=== PATIENT | female | born 1985 | race Caucasian/White ===

== ENCOUNTER 2022-03-16 11:01 | Emergency (ER) | payer BC ==
[2022-03-16] MEDS ORDERED: NA CHLORIDE 0.9% 1,000 ML ONE (11:12)
[2022-03-16 11:31] LABS: Absolute Lymphocytes (CBC) 1.7 K/uL (0.7-4.9); Hematocrit 30.3 % (36.0-45.0); Lymphocytes % 25.1 % (15.3-44.8); MCV 89.1 fL (80-100); MPV 7.6 fL (7.6-11.3)
--- NOTE | 2022-03-16 12:05 | RAD REPORT ---
EXAM DESCRIPTION: RAD - Chest Single View - 03/16/2022 11:56 am CLINICAL HISTORY: COUGH Chest pain. COMPARISON: No comparisons FINDINGS: Portable technique limits examination quality. The lungs are grossly clear. The heart is normal in size. No displaced fractures. IMPRESSION: No acute intrathoracic process suspected.
[2022-03-16 12:06] LABS: Bilirubin Total 0.3 mg/dL (0.2-1.0); Protein, Total 6.2 g/dL (6.4-8.2)
[2022-03-16 12:07] LABS: Potassium 3.3 mmol/L (3.5-5.1)
[2022-03-16 12:38] LABS: Urine Blood Trace-intact (Negative); Urine Glucose Negative (Negative); Urine Protein Negative (Negative)
[2022-03-16] MEDS ORDERED: POTASSIUM 25 MEQ EFFERV TAB ONE (12:40)
[2022-03-16] MEDS ORDERED: MECLIZINE HCL 12.5 MG TAB ONE (12:40)
--- NOTE | 2022-03-16 12:42 | EDPHYS ---
Physician Documentation [facility] Name: Fela Nayak Age: 36 yrs Sex: Female : 1985 Arrival Date: 03/16/2022 Time: 11:07 Bed 15 Private MD: ED Physician Donte Hancock HPI: 03/16 12:29 This 36 yrs old Female presents to ER via EMS with complaints of dizzy and luis angel lightheaded. 12:29 The patient presents with dizziness, generalized weakness. Onset: The symptoms/episode luis angel began/occurred just prior to arrival. Context: occurred at work. Modifying factors: The symptoms are alleviated by nothing, the symptoms are aggravated by nothing. Associated signs and symptoms: The patient has no apparent associated signs or symptoms. Severity of symptoms: At their worst the symptoms were mild in the emergency department the symptoms are unchanged. Patient's baseline: Neuro: alert and fully oriented. The patient has not experienced similar symptoms in the past. Historical: - Allergies: 11:32 No Known Allergies; kc6 - Home Meds: 11:32 None [Active]; kc6 - PMHx: 11:32 None; kc6 - PSHx: 11:32 section; kc6 - Immunization history:: Client reports having NOT received the Covid vaccine. Flu vaccine is up to date. - Social history:: Smoking status: Patient denies any tobacco usage or history of. - Family history:: not pertinent. ROS: 12:29 Constitutional: Negative for fever, chills, and weight loss, Eyes: Negative for injury, luis angel pain, redness, and discharge, ENT: Negative for injury, pain, and discharge, Neck: Negative for injury, pain, and swelling, Cardiovascular: Negative for chest pain, palpitations, and edema, Respiratory: Negative for shortness of breath, cough, wheezing, and pleuritic chest pain, Abdomen/GI: Negative for abdominal pain, nausea, vomiting, diarrhea, and constipation, Back: Negative for injury and pain, : Negative for injury, bleeding, discharge, and swelling, MS/Extremity: Negative for injury and deformity, Skin: Negative for injury, rash, and discoloration, Psych: Negative for depression, anxiety, suicide ideation, homicidal ideation, and hallucinations, Allergy/Immunology: Negative for hives, rash, and allergies, Endocrine: Negative for neck swelling, polydipsia, polyuria, polyphagia, and marked weight changes, Hematologic/Lymphatic: Negative for swollen nodes, abnormal bleeding, and unusual bruising. 12:29 Neuro: Positive for dizziness, weakness. Exam: 12:29 Constitutional: This is a well developed, well nourished patient who is awake, alert, luis angel and in no acute distress. Head/Face: Normocephalic, atraumatic. Eyes: Pupils equal round and reactive to light, extra-ocular motions intact. Lids and lashes normal. Conjunctiva and sclera are non-icteric and not injected. Cornea within normal limits. Periorbital areas with no swelling, redness, or edema. ENT: Nares patent. No nasal discharge, no septal abnormalities noted. Tympanic membranes are normal and external auditory canals are clear. Oropharynx with no redness, swelling, or masses, exudates, or evidence of obstruction, uvula midline. Mucous membranes moist. Neck: Trachea midline, no thyromegaly or masses palpated, and no cervical lymphadenopathy. Supple, full range of motion without nuchal rigidity, or vertebral point tenderness. No Meningismus. Chest/axilla: Normal chest wall appearance and motion. Nontender with no deformity. No lesions are appreciated. Cardiovascular: Regular rate and rhythm with a normal S1 and S2. No gallops, murmurs, or rubs. Normal PMI, no JVD. No pulse deficits. Respiratory: Lungs have equal breath sounds bilaterally, clear to auscultation and percussion. No rales, rhonchi or wheezes noted. No increased work of breathing, no retractions or nasal flaring. Abdomen/GI: Soft, non-tender, with normal bowel sounds. No distension or tympany. No guarding or rebound. No evidence of tenderness throughout. Back: No spinal tenderness. No costovertebral tenderness. Full range of motion. Skin: Warm, dry with normal turgor. Normal color with no rashes, no lesions, and no evidence of cellulitis. MS/ Extremity: Pulses equal, no cyanosis. Neurovascular intact. Full, normal range of motion. Neuro: Awake and alert, GCS 15, oriented to person, place, time, and situation. Cranial nerves II-XII grossly intact. Motor strength 5/5 in all extremities. Sensory grossly intact. Cerebellar exam normal. Normal gait. Psych: Awake, alert, with orientation to person, place and time. Behavior, mood, and affect are within normal limits. 12:29 ECG was reviewed by the Attending Physician. 12:33 Musculoskeletal/extremity: DVT Exam: No signs of deep vein thrombosis. no pain, no luis angel swelling, no tenderness, negative Homans' sign noted on exam, no appreciated bluish discoloration, no erythema, no increased warmth. Vital Signs: 11:29 BP 130 / 90; Pulse 73; Resp 15; Temp 97.9(O); Pulse Ox 98% on R/A; Weight 70.31 kg (R); kc6 Height 5 ft. 8 in. (172.72 cm) (R); Pain 0/10; 12:31 BP 124 / 78; Pulse 68; Resp 18 S; Pulse Ox 99% on R/A; Pain 0/10; kc6 11:29 Body Mass Index 23.57 (70.31 kg, 172.72 cm) kc6 NIH Stroke Scale Scores: 12:43 NIHSS Score: 0 luis angel Slim Coma Score: 12:33 Eye Response: spontaneous(4). Verbal Response: oriented(5). Motor Response: obeys luis angel commands(6). Total: 15. MDM: 11:07 Patient medically screened. luis angel 11:08 Patient medically screened. luis angel 12:31 Differential diagnosis: cardiac arrhythmia, generalized weakness, hypovolemia, luis angel idiopathic dizziness, near-syncope, , vertigo. Data reviewed: vital signs, nurses notes, EMS record, lab test result(s), EKG, radiologic studies, plain films. Data interpreted: secured entrance monitor: rate is 73 beats/min, rhythm is regular, Pulse oximetry: on room air is 98 %. Counseling: I had a detailed discussion with the patient and/or guardian regarding: the historical points, exam findings, and any diagnostic results supporting the discharge/admit diagnosis, lab results, radiology results, the need for outpatient follow up, for definitive care, a family practitioner, a neurologist. 03/16 11:08 Order name: CBC with Diff; Complete Time: 12:10 [facility] 03/16 11:08 Order name: Comprehensive Metabolic Panel; Complete Time: 12:10 [facility] 03/16 11:08 Order name: Troponin High Sensitivity; Complete Time: 12:10 [facility] 03/16 11:08 Order name: Lipase; Complete Time: 12:10 [facility] 03/16 12:38 Order name: Urine Dipstick-Ancillary EDNJ 03/16 12:39 Order name: Urine --Ancillary (enter results) eb 03/16 11:08 Order name: Urine Dipstick-Ancillary (obtain specimen); Complete Time: 12:41 [facility] 03/16 11:08 Order name: Urine Test (obtain specimen); Complete Time: 12:41 [facility] 03/16 11:08 Order name: EKG; Complete Time: 11:09 [facility] 03/16 11:08 Order name: EKG - Nurse/Tech; Complete Time: 11:27 [facility] 03/16 11:08 Order name: Chest Single View XRAY; Complete Time: 12:10 [facility] EC:29 Rate is 65 beats/min. Rhythm is regular. QRS [place] is Normal. ND interval is normal. QRS luis angel interval is normal. QT interval is normal. No Q waves. T waves are Normal. No ST changes noted. Clinical impression: Normal ECG and No evidence of ischemia. Interpreted by me. Reviewed by me. Administered Medications: 11: Drug: NS 0.9% 1000 ml Route: IV; Rate: 1 bolus; Site: right hand; kc6 12:44 Drug: Potassium Effervescent Tablet 25 mEq Route: PO; kc6 12:44 Drug: Meclizine 25 mg Route: PO; kc6 Disposition Summary: 03/16/22 12:41 Discharge Ordered Location: Home luis angel Problem: new luis angel Symptoms: have improved luis angel Condition: Stable luis angel Diagnosis - Dizziness and giddiness luis angel - Weakness luis angel Followup: luis angel - With: Private Physician - When: 2 - 3 days - Reason: Recheck today's complaints, Continuance of care, Re-evaluation by your physician Followup: luis angel - With: Gianni Marshall MD - When: 2 - 3 days - Reason: Recheck today's complaints, Re-evaluation by your physician Discharge Instructions: - Discharge Summary Sheet luis angel - Benign Positional Vertigo luis angel - Dizziness luis angel - Vertigo luis angel - Weakness luis angel - Weakness, [id number] luis angel - Dizziness, [id number] luis angel Forms: - Medication Reconciliation Form luis angel - Thank You Letter luis angel - Antibiotic Education luis angel - Prescription Opioid Use luis angel - Work release form ll1 Prescriptions: - Meclizine 25 mg Oral Tablet - take 1 tablet by ORAL route every 8 hours As needed; 30 tablet; Refills: 0, [facility] Product Selection Permitted - Zofran 4 mg Oral Tablet - take 1 tablet by ORAL route every 12 hours As needed; 20 tablet; Refills: 0, [facility] Product Selection Permitted NIH Stroke Scale - NIH Stroke Score Date: 03/16/2022 Time: 12:43 Total Score = 0 1a. Level of Consciousness (LOC) - 0(Alert) 1b. Level of Consciousness (LOC) (Month \T\ Age) - 0(Both) 1c. LOC Commands (Open \T\ Closes Eyes/[place]) - 0(Both) 2. Best Gaze (Lateral Gaze Paresis) - 0(Normal) 3. Visual Field Loss - 0(No visual loss) 4. Facial Palsy - 0(Normal) 5a. Left Arm: Motor (10-second hold) - 0(No drift) 5b. Right Arm: Motor (10-second hold) - 0(No drift) 6a. Left Leg: Motor (5-second hold - always test supine) - 0(No drift) 6b. Right Leg: Motor (5-second hold - always test supine) - 0(No drift) 7. Limb Ataxia (finger/nose \T\ heel/[place] - test with eyes open) - 0(Absent) 8. Sensory Loss (pinprick arms/legs/face) - 0(Normal) 9. Best Language: Aphasia (description/naming/reading) - 0(No aphasia) 10. Dysarthria (speech clarity - read or repeat words) - 0(Normal) 11. Extinction and Inattention (visual/tactile/auditory/spatial/personal) - 0(No abnormality) Initials: [facility] Signatures: Dispatcher [employer] Donte Palmer MD MD cha Campbell, Kaitlyn RN RN kc6
--- NOTE | 2022-03-16 12:42 | ER ---
Nurse's Notes [facility] Name: Fela Nayak Age: 36 yrs Sex: Female : 1985 Arrival Date: 03/16/2022 Time: 11:07 Bed 15 Private MD: Diagnosis: Dizziness and giddiness;Weakness Presentation: 03/16 11:29 Chief complaint: EMS states: client felt dizzy and like the room was spinning upon kc6 standing at work. Coronavirus screen: Vaccine status: Patient reports being unvaccinated. At this time, the client does not indicate any symptoms associated with coronavirus-19. Ebola Screen: No symptoms or risks identified at this time. Initial Sepsis Screen: Does the patient meet any 2 criteria? No. Patient's initial sepsis screen is negative. Does the patient have a suspected source of infection? No. Patient's initial sepsis screen is negative. Risk Assessment: Do you want to hurt yourself or someone else? Patient reports no desire to harm self or others. Onset of symptoms was March 16, 2022. 11:29 Method Of Arrival: EMS: [facility] kc6 11:29 Acuity: NEHEMIAS 3 kc6 Triage Assessment: 11:31 General: Appears in no apparent distress. comfortable, Behavior is calm, cooperative, kc6 appropriate for age. Pain: Denies pain. EENT: No signs and/or symptoms were reported regarding the EENT system. Neuro: Silver Agitation-Sedation Scale (RASS): 0 - Alert and Calm Level of Consciousness is awake, alert, obeys commands, Oriented to person, place, time, situation, Appropriate for age Reports dizziness. Cardiovascular: Heart tones S1 S2 present Capillary refill < 3 seconds. Respiratory: Airway is patent Trachea midline Respiratory effort is even, unlabored, Respiratory pattern is regular, symmetrical, Breath sounds are clear bilaterally. GI: No signs and/or symptoms were reported involving the gastrointestinal system. : No signs and/or symptoms were reported regarding the genitourinary system. Derm: No signs and/or symptoms reported regarding the dermatologic system. Skin is intact, Skin is pink, warm \T\ dry. Musculoskeletal: No signs and/or symptoms reported regarding the musculoskeletal system. Circulation, motion, and sensation intact. Capillary refill < 3 seconds, Range of motion: intact in all extremities. Historical: - Allergies: 11:32 No Known Allergies; kc6 - Home Meds: 11:32 None [Active]; kc6 - PMHx: 11:32 None; kc6 - PSHx: 11:32 section; kc6 - Immunization history:: Client reports having NOT received the Covid vaccine. Flu vaccine is up to date. - Social history:: Smoking status: Patient denies any tobacco usage or history of. - Family history:: not pertinent. Screenin:29 Abuse screen: Denies threats or abuse. Denies injuries from another. Nutritional kc6 screening: No deficits noted. Tuberculosis screening: No symptoms or risk factors identified. Fall Risk No fall in past 12 months (0 pts). No secondary diagnosis (0 pts). IV access (20 points). Ambulatory Aid- None/Bed Rest/Nurse Assist (0 pts). Gait- Normal/Bed Rest/Wheelchair (0 pts) Mental Status- Oriented to own ability (0 pts). Total Nicole Fall Scale indicates No Risk (0-24 pts). Assessment: 11:28 General: Appears in no apparent distress. comfortable, Behavior is calm, cooperative, kc6 appropriate for age. Pain: Denies pain. Neuro: Silver Agitation-Sedation Scale (RASS): 0 - Alert and Calm Level of Consciousness is awake, alert, obeys commands, Oriented to person, place, time, situation, Appropriate for age. Neuro: Reports dizziness. Cardiovascular: Heart tones S1 S2 present Capillary refill < 3 seconds. Respiratory: Airway is patent Trachea midline Respiratory effort is even, unlabored, Respiratory pattern is regular, symmetrical. GI: No signs and/or symptoms were reported involving the gastrointestinal system. : No signs and/or symptoms were reported regarding the genitourinary system. EENT: No signs and/or symptoms were reported regarding the EENT system. Derm: No signs and/or symptoms reported regarding the dermatologic system. Skin is intact, Skin is pink, warm \T\ dry. Musculoskeletal: No signs and/or symptoms reported regarding the musculoskeletal system. Circulation, motion, and sensation intact. Capillary refill < 3 seconds, Range of motion: intact in all extremities. 12:31 Reassessment: Patient appears in no apparent distress at this time. No changes from kc6 previously documented assessment. Patient and/or family updated on plan of care and expected duration. Pain level reassessed. Patient is alert, oriented x 3, equal unlabored respirations, skin warm/dry/pink. Patient denies pain at this time. 13:27 Reassessment: Patient appears in no apparent distress at this time. No changes from kc previously documented assessment. Patient and/or family updated on plan of care and expected duration. Pain level reassessed. Patient is alert, oriented x 3, equal unlabored respirations, skin warm/dry/pink. Patient denies pain at this time. Vital Signs: 11:29 BP 130 / 90; Pulse 73; Resp 15; Temp 97.9(O); Pulse Ox 98% on R/A; Weight 70.31 kg (R); kc6 Height 5 ft. 8 in. (172.72 cm) (R); Pain 0/10; 12:31 BP 124 / 78; Pulse 68; Resp 18 S; Pulse Ox 99% on R/A; Pain 0/10; kc6 11:29 Body Mass Index 23.57 (70.31 kg, 172.72 cm) kc6 Slim Coma Score: 12:33 Eye Response: spontaneous(4). Verbal Response: oriented(5). Motor Response: obeys luis angel commands(6). Total: 15. NIH Stroke Scale Scores: 12:43 NIHSS Score: 0 [facility] ED Course: 11:07 Patient arrived in ED. luis angel 11:07 Donte Hancock MD is Attending Physician. [facility] 11:09 Sarah Calix, RN is Primary Nurse. kc6 11:27 Lipase Sent. kc6 11:27 Troponin High Sensitivity Sent. kc6 11:27 Comprehensive Metabolic Panel Sent. kc6 11:27 CBC with Diff Sent. kc6 11:27 Maintain EMS IV. Dressing intact. Good blood return noted. Site clean \T\ dry. Gauge \T\ tyree 6 site: 20G R Hand. 11:31 Triage completed. kc6 11:59 Chest Single View XRAY In Process Unspecified. EDMS 12:41 Gianni Marshall MD is Referral Physician. [facility] 13:27 Arm band placed on. kc6 13:28 No provider procedures requiring assistance completed. IV discontinued, intact, kc6 bleeding controlled, No redness/swelling at site. Pressure dressing applied. 13:28 Patient has correct armband on for positive identification. Bed in low position. Call kc light in reach. Side rails up X 1. Administered Medications: 11:27 Drug: NS 0.9% 1000 ml Route: IV; Rate: 1 bolus; Site: right hand; kc6 12:44 Drug: Potassium Effervescent Tablet 25 mEq Route: PO; kc6 12:44 Drug: Meclizine 25 mg Route: PO; kc6 Medication: 13:28 VIS not applicable for this client. kc6 Outcome: 12:41 Discharge ordered by . luis angel 13:28 Discharged to home ambulatory. [facility] 13:28 Condition: stable 13:28 Discharge instructions given to patient, Instructed on discharge instructions, follow up and referral plans. medication usage, Demonstrated understanding of instructions, follow-up care, medications, Prescriptions given X 2. 13:28 Patient left the ED. kc6 NIH Stroke Scale - NIH Stroke Score Date: 03/16/2022 Time: 12:43 Total Score = 0 1a. Level of Consciousness (LOC) - 0(Alert) 1b. Level of Consciousness (LOC) (Month \T\ Age) - 0(Both) 1c. LOC Commands (Open \T\ Closes Eyes/Machine Splitter) - 0(Both) 2. Best Gaze (Lateral Gaze Paresis) - 0(Normal) 3. Visual Field Loss - 0(No visual loss) 4. Facial Palsy - 0(Normal) 5a. Left Arm: Motor (10-second hold) - 0(No drift) 5b. Right Arm: Motor (10-second hold) - 0(No drift) 6a. Left Leg: Motor (5-second hold - always test supine) - 0(No drift) 6b. Right Leg: Motor (5-second hold - always test supine) - 0(No drift) 7. Limb Ataxia (finger/nose \T\ heel/[place] - test with eyes open) - 0(Absent) 8. Sensory Loss (pinprick arms/legs/face) - 0(Normal) 9. Best Language: Aphasia (description/naming/reading) - 0(No aphasia) 10. Dysarthria (speech clarity - read or repeat words) - 0(Normal) 11. Extinction and Inattention (visual/tactile/auditory/spatial/personal) - 0(No abnormality) Initials: [facility] Signatures: Dispatcher [employer] EDDonte Paiz MD MD cha Campbell, Kaitlyn RN RN kc6
[2022-03-16 14:04] VITALS: TEMP 97.9
[2022-03-16 14:06] VITALS: BP 124/78; O2SAT 99
--- NOTE | 2022-03-18 19:18 | EKG ---
Test Date: 2022-03-16 Test Time: 11:16:22 Sheet Metal Supervisor: BRIANA MEASUREMENT RESULTS: Intervals: Rate: 65 WV: 140 QRSD: 82 QT: 384 QTc: 399 [place]: P: 54 WV: 140 QRS: 33 T: 24 INTERPRETIVE STATEMENTS: Normal sinus rhythm Normal ECG No previous ECG available for comparison Electronically Signed On 03-18-22 19:11:07 CHIROPRACTOR ASSISTANT by Sreekanth Henao
== END 2022-03-16 13:28 | disposition home or self-care (01) ==
LOC: ER 11:01
DX: R42 Dizziness and giddiness (principal); R53.1 Weakness
CPT/HCPCS: 93005; 85025; 36415; 81025; 81003; 84484; 83690; 80053; 71045; 99284; J8597; J7030